=== PATIENT | female | born 1965 | race Caucasian/White ===

== ENCOUNTER → 2016-10-02 | Outpatient (CLI) | payer OTHER ==
[~2016-10-02] MED LIST: BACTRIM DS DPS1 TAB PO; CELEBREX100 MG PO; FLEXERIL-DPS10 MG PO; KEFLEX-DPS500 MG PO; NEURONTIN DPS100 MG PO; NORCO 5-325 TA1 EACH PO; PROTONIX40 MG PO; RESTORIL DPS30 MG PO; TYLENOL DPS325 MG PO; WELLBUTRIN SR150 M1 PO
== END | disposition home or self-care (01) ==
LOC: RAD.S 09:13
DX: M54.2 Cervicalgia (principal); M96.1 Postlaminectomy syndrome, not elsewhere classified; Z79.891 Long term (current) use of opiate analgesic